=== PATIENT | male | born 1980 | race Caucasian/White ===

== ENCOUNTER 2017-01-23 20:06 | Emergency (ER) | payer BC ==
[2017-01-23 20:49] LABS: #Eosinphils 0.1 thou/uL (0.0-0.7); #Lymphocytes 3.2 thou/uL (1.20-3.40); #Monocytes 0.5 thou/uL (0.11-0.59); #Neutrophils 5.1 thou/uL (1.40-6.50); %Basophils 0.3 % (0.0-1.0); %Eosinophils 1.2 % (0.0-10.0); %Lymphocytes 35.8 % (21.0-51.0); %Monocytes 5.3 % (0.0-10.0); Hematocrit 44.9 % (42.0-52.0); Mean Platelet Volume 7.6 fL (7.4-10.4); Red Blood Cell (RBC) Count 5.19 mill/uL (4.70-6.10); White Blood Cell (WBC) Count 8.9 thou/uL (4.8-10.8)
[2017-01-23 21:12] LABS: ALT (SGPT) 20 U/L (8-55); AST (SGOT) 23 U/L (5-34); Alkaline Phosphatase 62 U/L (40-150); Anion Gap 15 mmol/L (10-20); BUN (Urea Nitrogen) 11 mg/dL (8.9-20.6); Bilirubin, Total 0.6 mg/dL (0.2-1.2); CK (CPK) 129 U/L (30-200); Calc. Creatinine Clearance 0 mL/min (70-130); Calcium 9.3 mg/dL (7.8-10.44); Carbon Dioxide 25 mmol/L (22-29); Chloride 104 mmol/L (98-107); Estimated GFR-MDRD 80; Globulin 3.4 g/dL (2.4-3.5); Protein, Total 7.7 g/dL (6.0-8.3)
[2017-01-23 21:16] LABS: Troponin I Less than 0.010 ng/mL (< 0.028)
--- NOTE | 2017-01-23 21:58 | RAD ---
AP CHEST: Indication: High risk complaint; chest pain. Comparison: None. FINDINGS: The lungs are clear. Heart size and pulmonary vasculature are normal. No pleural effusion or pneumot horax is evident. No acute osseous abnormality is demonstrated. IMPRESSION: No acute cardiopulmonary abnormality. POS: [facility]
--- NOTE | 2017-01-28 14:55 | EKG ---
Test Reason : CHEST PAIN Blood Pressure : / mmHG Vent. Rate : 063 BPM Atrial Rate : 063 BPM P-R Int : 132 ms QRS Dur : 088 ms QT Int : 380 ms P-R-T Axes : 021 -19 017 degrees QTc Int : 388 ms Normal sinus rhythm Normal ECG Confirmed by IVONE BECKFORD D.O. ([id number]), rewrite editor MIRTHA CASTRO ([id number] on 01/28/2017 2:55:13 PM Referred By: Confirmed By:IVONE BECKFORD D.O.
== END 2017-01-23 21:55 | disposition home or self-care (01) ==
LOC: ERS 20:06
DX: R07.9 Chest pain, unspecified (principal); E78.5 Hyperlipidemia, unspecified; I10 Essential (primary) hypertension
CPT/HCPCS: 71010; 80053; 82550; 82553; 83880; 84484; 85025; 93005; 94760